=== PATIENT | male | born 1990 | race Caucasian/White ===

== ENCOUNTER 2020-06-11 11:07 | Observation (INO) | payer OTHER, SELFPAY ==
[2020-06-11] VITALS (9 sets, daily range): BP systolic 131–147; BP diastolic 71–98; PULSE 53–97; RESP 18; TEMP 36.8–37.1; O2SAT 92–100; BMI 26.8
--- NOTE | ~2020-06-11 | CT_ITS ---
EXAMINATION: CT brain wo con DATE: 06/11/2020 12:02 INDICATION: Hallucinations. TECHNIQUE: Computed tomography (CT) of the head was performed without intravenous contrast. The mA wa s adjusted according to patient size. Iterative reconstruction technique was employed. The dose-lengt h product was 605.33 mGy-cm. COMPARISON: None FINDINGS: There is no intracranial hemorrhage, acute infarction, or abnormal intracranial mass lesion . The ventricles are normal in size. There is mild mucosal thickening in the paranasal sinuses. The m astoid air cells are normal. The orbits are normal. IMPRESSION: 1. Normal brain. Reviewed, dictated and finalized at location A. IMPRESSION: 1. Normal brain.
--- NOTE | ~2020-06-11 | XR_ITS ---
EXAMINATION: XR chest 1V portable DATE: 06/11/2020 12:10 INDICATION: Hallucinations. TECHNIQUE: A single frontal view of the chest was obtained. COMPARISON: Chest 2 views 10/10/2013 FINDINGS: The chest demonstrates clear lungs without pneumonia, pleural effusion, or pneumothorax. Th e heart size is normal. IMPRESSION: 1. No acute cardiopulmonary disease. Reviewed, dictated and finalized at location A.
[2020-06-11] MEDS: LACTATED RINGERS 1,000 ML 999 ML IV CONT (12:23)
[2020-06-11] MEDS: ONDANSETRON INJ 4 MG/2 ML VIAL IV PUSH (12:23)
[2020-06-11 12:48] LABS: Basophils Absolute Auto 0.1 K/mm3 (0.0-0.1); Basophils Percent Auto 0.5 % (0.2-1.2); Eosinophils Percent Auto 0.2 % (0-4.4); Hematocrit 35.7 % (42.0-52.0); Hemoglobin 12.7 g/dL (14.0-18.0); Immature Granulocyte Absolute 0.04 K/mm3 (0.00-0.031); Immature Granulocyte Percent A 0.4 % (0-0.5); Lymphocytes Absolute Auto 2.64 K/mm3 (0.9-3.2); Lymphocytes Percent Auto 25.4 % (18.3-44.2); Mean Corpuscular HGB Conc 35.6 g/dl (32-36); Mean Corpuscular Hemoglobin 31.4 pg (26-34); Mean Corpuscular Volume 88.4 fl (80-100); Mean Platelet Volume 9.9 fl (7.4-10.4); Monocytes Absolute Auto 0.9 K/mm3 (0.1-0.6); Monocytes Percent Auto 8.5 % (2.6-8.5); Neutrophils Absolute Auto 6.8 K/mm3 (1.3-6.7); Platelet Count Result 242 k/mm3 (150-375); Red Blood Count 4.04 M/mm3 (4.6-6.20); Red Cell Distribution Width 12.6 % (11.5-14.5); White Blood Count 10.4 K/mm3 (4.5-10.0)
[2020-06-11 12:50] LABS: Add Urine Microscopic? YES; Appearance Urine Clear (Clear); Bilirubin Urine Negative (Negative); Blood Urine Negative (Negative); Color Urine Yellow (Yellow); Glucose Urine UA Negative (Negative); Ketones Urine Trace mg/dL (Negative); Leukocyte Esterase Ur Negative LEU/UL (Negative); Mucus Urine Rare /lpf; Nitrate Urine Negative (Negative); Protein Urine 1+ mg/dL (Negative); RBC Urine 0-2 /hpf (0-2); Specific Grav Ur 1.026 (1.001-1.035); Urobilinogen Urine Negative mg/dL (<2.0); WBC Urine 0-3 /hpf
[2020-06-11 12:51] LABS: Alanine Aminotransferase 45 U/L (4-50); Albumin Level 4.7 g/dL (3.5-5.1); Alkaline Phosphatase 70 U/L (38-126); Anion Gap 7 mmol/L (8-16); Aspartate Amino Transferase 66 U/L (17-59); Bilirubin,Total 2.3 mg/dL (0.2-1.3); Blood Urea Nitrogen 15 mg/dL (9-20); Calcium 9.5 mg/dL (8.4-10.2); Carbon Dioxide 25 mmol/L (22-30); Chloride 107 mmol/L (98-107); Creatine Kinase 1391 U/L (55-170); Estimated CRCL calculation 119 ml/min; Estimated Glomerular Filt Rate > 60; Glucose 113 mg/dL (75-110); Potassium 3.8 mmol/L (3.4-5.0); Sodium 139 mmol/L (137-145)
--- NOTE | 2020-06-11 12:53 | PC.NURSE ---
Per Kiley, District Leader, [facility] attempted to direct admit pt Anton Hopkins for a methamphetamine overdose yesterday.
[2020-06-11 12:59] LABS: Barbiturate Screen Urine Negative (Negative); Benzodiazepines Screen Urine Positive (Negative)
--- NOTE | 2020-06-11 13:00 | ECG_ITS ---
Measurements Intervals [place] Rate: 69 P: -13 MI: 134 QRS: 36 QRSD: 98 T: 12 QT: 406 QTc: 436 Interpretive Statements SINUS RHYTHM NORMAL ECG Electronically Signed On 06-11-2020 17:07:25 CDT by Laith Molina D.O.
[2020-06-11 13:01] LABS: Cannabinoid Screen Urine Negative (Negative); Cocaine Screen Urine Negative (Negative); Methadone Screen Urine Negative (Negative); Opiate Screen Urine Negative (Negative); Phencyclidine Screen Urine Negative (Negative)
--- NOTE | 2020-06-11 13:06 | PC.NURSE ---
lunch tray given.
--- NOTE | 2020-06-11 13:15 | ED.GENADULT ---
HPI - General Adult General Chief complaint: Psychiatric Symptoms Stated complaint: audio/visual hallucinations yesterday Time Seen by Provider: 06/11/20 11:28 Source: patient Mode of arrival: EMS Limitations: no limitations History of Present Illness HPI narrative: This is a 29 year old male with history of depression who presents for evaluation of auditory and visual hallucinations. He states 2 days ago he was partying in [place]. HE admits at to snorting what he thought was cocaine. He states he found out it also contained methamphetamine and he thinks their is acid as well. He has been seen at [place] [facility] twice since this use. He states he does not feel well, and he is having auditory and visual hallucinations. It has been reported to me that patient was going to be transferred to [facility] yesterday but no beds were available at the time. He denies being homicidal or suicidal at this time. Related Data Home Medications Medication Instructions Recorded Confirmed lorazepam 1 mg PO QID 06/11/20 06/11/20 Allergies Allergy/AdvReac Type Severity Reaction Status Date / Time silicone AdvReac Severe Difficulty Verified 06/11/20 15:24 Breathing Review of Systems Review of Systems: All systems reviewed & are unremarkable except as noted in HPI and below PMFSH Past Medical History Medical History (Updated 06/11/20 @ 19:03 by Amanda Vanegas MD) Depression Polysubstance abuse Surgical History Surgical History (Updated 06/11/20 @ 13:22 by Amanda Vanegas MD) No pertinent past surgical history Family History Family History (Updated 06/11/20 @ 15:53 by Sofiya Hanks RN) Other Unknown family medical history Social History Social History (Updated 06/11/20 @ 15:52 by Lisa Richardson PA-C) Social History: Surrogate decision maker: Code status: Full code. Years smoked: 18 Smoking status: Former smoker Tobacco type: cigarettes and cigars Second hand tobacco smoke exposure: Yes Additional smoking assessment comments: VARIES WHAT AND HOW MUCH HE SMOKES AND IF ALCOHOL OR DRUGS ARE INVOLVED Alcohol intake: current Drinks per week: 2 Substance use: current Substance use type: marijuana, crack/cocaine, heroin, amphetamines, opiates, painkillers, IV drugs and methamphetamine Last use: 06/09/20 Additional living arrangements comments: Patient lives in [place]. Additional occupation/education comments: [employer]. Spiritual care concerns: No Exam Const: General: no acute distress and alert Orientation/consciousness: patient oriented x3 Eyes: EOM: EOMs intact bilaterally Resp: Effort & Inspection: normal respiratory effort and no retractions Auscultation: clear to auscultation bilaterally Cardio: Rate: regular rate Rhythm: regular rhythm Heart sounds: no murmurs GI: GI Palp: Yes Soft to palpation, No Tenderness to palpation present (GI) and No Guarding due to palpation present (GI) Auscultation: normal bowel sounds Neuro: General: patient oriented x3 and CN's II-XI intact bilaterally Psych: Thought content: No Suicidality present, No Homicidality present and Yes Hallucination(s) present (the wall is dripping) Course Consultations Consultation #1: I Discussed case with Lisa Richardson, who accepts patient to hospitalist service for rhabomyolysis Date: 06/11/20 Time: 13:22 Vital Signs Vital signs: Vital Signs Temperature 98.8 F 06/11/20 11:07 Pulse Rate 97 06/11/20 11:07 Respiratory Rate 18 06/11/20 11:07 Blood Pressure 142/73 H 06/11/20 11:07 Pulse Oximetry 99 06/11/20 11:07 Temperature 98.4 F 06/11/20 15:15 Pulse Rate 81 06/11/20 16:00 Respiratory Rate 18 06/11/20 15:59 Blood Pressure 131/85 06/11/20 15:15 Pulse Oximetry 94 06/11/20 15:59 Medical Decision Making Vital Signs Vital Signs: Vital Signs Temperature 98.8 F 06/11/20 11:07 Pulse Rate 97 06/11/20 11:07 Respi
[2020-06-11 13:34] LABS: Ethanol < 10 mg/dL (<10)
--- NOTE | 2020-06-11 14:02 | PC.NURSE ---
Noted pt standing at side of bed heart rate sinus tach rate 150's. Pt appears anxious, states I know my is here. And my kid! . Had previously explained that no one by his 's name was here. Attempt to calm patient. Pt assisted back to bed. Heart rate decreases back to normal.
[2020-06-11] MEDS: SODIUM CHLORIDE 0.9% IV 1,000 ML 999 ML IV CONT (14:30)
--- NOTE | 2020-06-11 15:15 | ADMGEN ---
This patient, Anton Hopkins, was admitted to Medical Room 245-. Patient/family oriented to hospital policies and general routines including ID bracelet, bed and alarms, visiting hours, pain management, procedures, bathroom and other care routines, personal items, smoking policy, room service/diet, and visiting hours. Information on how to activate the Rapid Response Team has been discussed. Patient/Family are encouraged to report perceived risks to care and to ask questions if they do not understand what they are told or what they should do.
--- NOTE | 2020-06-11 16:00 | PM.IMHP ---
H&P: HPI History of Present Illness Date/Time: 06/11/20 16:00 Chief Complaint: Auditory and visual hallucinations. Narrative: This is a 29-year-old male with PTSD and a longstanding history of illicit substance use who presented to the emergency department earlier today via EMS with complaints of auditory and visual hallucinations. He is not a good historian and expresses impulsivity in flight of ideas, and as such a majority of the following is obtained via a review of his electronic medical records and discussions with his nurse who was finally able to get a hold of the patient's . Two days ago he was at a [place] party and admits to snorting what he thought was cocaine though he later found out that it was methamphetamines. Since that time he has been having auditory (he does not describe these in detail to me) and visual hallucinations and in fact he was in the emergency department at [facility] in [place] sometime yesterday for the same. It is my understanding that the police were called because he was belligerent and aggressive and he may have been taken to longterm last night. Today he has reportedly been seeing jewelry engraver running their cars through the wall of his apartment and he has been having ?swirling? vision when looking at the ruiz which he thinks may be due to possible acid that was mixed in with the meth. In any event, his workup in the ED was essentially unremarkable aside from an increase creatinine kinase level and he is being admitted in this setting. He has no complaints at this time and specifically denies headache, focal weakness, paresthesias, chest pain, shortness of breath, nausea, and vomiting. Review of Systems Review of Systems: Narrative: I attempted a complete review of systems but was unable to do so accurately given the patient's current state. He has frequent flight of ideas and answers a lot of my questions bizarrely. COUNT INCLUDES THE [facility] Past Medical History Medical History (Updated 06/11/20 @ 20:16 by Lisa Richardson PA-C) Polysubstance abuse Including cocaine, methamphetamines, and IV heroin and fentanyl abuse. Posttraumatic stress disorder Surgical History Surgical History No pertinent past surgical history Family History Family History Other Unknown family medical history Social History Social History (Updated 06/11/20 @ 20:16 by Lisa Richardson PA-C) Social History: Surrogate decision maker: Patient does not name a surrogate decision maker at time. Code status: Full code. Smoking status: Former smoker Tobacco type: cigarettes and cigars Second hand tobacco smoke exposure: Yes Additional smoking assessment comments: VARIES WHAT AND HOW MUCH HE SMOKES AND IF ALCOHOL OR DRUGS ARE INVOLVED. Alcohol intake: current Drinks per week: 2 Substance use: current Substance use type: marijuana, crack/cocaine, heroin, amphetamines, opiates, painkillers, IV drugs and methamphetamine Last use: 06/09/20 Additional living arrangements comments: Patient lives in [place]. Additional occupation/education comments: [place] [employer] Spiritual care concerns: No Meds Home Medications and Allergies Home Medications Medication Instructions Recorded Confirmed Type lorazepam 1 mg PO QID 06/11/20 06/11/20 History Allergies Allergy/AdvReac Type Severity Reaction Status Date / Time silicone AdvReac Severe Difficulty Verified 06/11/20 15:24 Breathing Vital Signs Vital Signs - 24 hr 06/11/20 11:07 06/11/20 13:03 06/11/20 13:16 Temperature 98.8 F Pulse Rate 97 71 83 Respiratory Rate 18 Blood Pressure 142/73 H 138/98 H 147/95 H Pulse Oximetry 99 100 100 06/11/20 15:15 Temperature 98.4 F Pulse Rate 53 L Respiratory Rate 18 Blood Pressure 131/85 Pulse Oximetry 94 Exam Narrative: Exam Narrative: General: Well-develop
[2020-06-11] MEDS: LACTATED RINGERS 1,000 ML 200 ML IV CONT (16:38)
[2020-06-11 18:20] LABS: Bilirubin Indirect 2.1 mg/dL (0-1.1); Creatine Kinase 1180 U/L (55-170); Lactate Dehydrogenase 590 U/L (313-618)
[2020-06-11 18:21] LABS: Prothrombin Time 14.2 Seconds (11.1-14.7)
[2020-06-11 18:22] LABS: Partial Thromboplastin Time 27.5 SECONDS (22.3-36.8)
[2020-06-11 18:38] LABS: Ammonia < 9 umol/L (9-30); Iron 169 ug/dL (49-181)
[2020-06-11 18:48] LABS: Percent Iron Saturation 79 % (20-50)
[2020-06-11 19:10] LABS: Thyroid Stimulating Hormone Reflex 0.449 uIU/mL (0.465-4.68)
[2020-06-11] MEDS: LORazepam INJ (*CRX) 2 MG/ML VIAL IM (19:10)
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
[2020-06-11 19:27] LABS: Folic Acid 16.6 ng/mL (2.76->20)
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
[2020-06-11] MEDS: HALOPERIDOL LACTATE 5 MG/ML VIAL IM (21:22)
--- NOTE | 2020-06-11 23:00 | PC.NURSE ---
Security sitting with patient. Pt agitation increasing making multiple attempts to get up and to pull out IV. Pt refused to leave tele in place and pas attempted to pull IV pole into bed with him. Pt pulled out his IV with his teeth. Dr Abrams notified and new orders received.
[2020-06-11] MEDS: HALOPERIDOL LACTATE 5 MG/ML VIAL 10 MG IM (23:15)
[2020-06-11] MEDS: diazePAM INJ (*CRX) 10 MG/2 ML SYRINGE 5 MG IM (23:16)
--- NOTE | 2020-06-12 00:33 | PC.NURSE ---
Pt having increased restlessness attempting to get up. Pt becoming frustrated and drawing arm back at staff with a fist. Dr Abrams notified.
[2020-06-12] MEDS: diazePAM INJ (*CRX) 10 MG/2 ML SYRINGE IM (00:51)
--- NOTE | 2020-06-12 02:11 | PC.NURSE ---
Pt attempting to get up and restless. Call and informed Dr Abrams.
--- NOTE | 2020-06-12 02:30 | PC.NURSE ---
Pt restless, Dr Abrams came and evaluated pt and placed order.
[2020-06-12] MEDS: QUEtiapine FUMARATE 25 MG TABLET 50 MG PO (02:44)
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
--- NOTE | 2020-06-12 05:06 | PC.NURSE ---
Pt is sleeping at this time.
[2020-06-12 05:37] LABS: Hematocrit 34.9 % (42.0-52.0); Hemoglobin 12.6 g/dL (14.0-18.0); Mean Corpuscular HGB Conc 36.1 g/dl (32-36); Mean Corpuscular Hemoglobin 31.2 pg (26-34); Mean Corpuscular Volume 86.4 fl (80-100); Platelet Count Result 220 k/mm3 (150-375); Red Blood Count 4.04 M/mm3 (4.6-6.20); Red Cell Distribution Width 12.2 % (11.5-14.5); White Blood Count 8.8 K/mm3 (4.5-10.0)
[2020-06-12 05:39] VITALS: BP 123/50; PULSE 85; RESP 16; TEMP 36.4; O2SAT 98
[2020-06-12 05:44] LABS: Alanine Aminotransferase 48 U/L (4-50); Albumin Level 4.3 g/dL (3.5-5.1); Alkaline Phosphatase 64 U/L (38-126); Anion Gap 6 mmol/L (8-16); Aspartate Amino Transferase 80 U/L (17-59); Bilirubin,Total 2.4 mg/dL (0.2-1.3); Blood Urea Nitrogen 12 mg/dL (9-20); Calcium 9.1 mg/dL (8.4-10.2); Carbon Dioxide 24 mmol/L (22-30); Chloride 109 mmol/L (98-107); Estimated CRCL calculation 133 ml/min; Estimated Glomerular Filt Rate > 60; Glucose 102 mg/dL (75-110); Potassium 3.5 mmol/L (3.4-5.0); Sodium 139 mmol/L (137-145)
--- NOTE | 2020-06-12 09:04 | PM.DS ---
DS: Admitting Diagnosis Admitting Diagnosis Admitting Diagnosis: hallucinations, rhabdomyelitis DS: Discharge Diagnosis Discharge Diagnosis (1) Rhabdomyolysis: Code(s): M62.82 - Rhabdomyolysis Status: Acute Assessment and Plan: Presumably methamphetamine induced rhabdomyolysis. (2) Hallucinations: Code(s): R44.3 - Hallucinations, unspecified Status: Acute Assessment and Plan: Patient reports both auditory and visual hallucinations, likely due to ingestion of methamphetamines +/- hallucinogenics. (3) Polysubstance abuse: Code(s): F19.10 - Other psychoactive substance abuse, uncomplicated Status: Chronic Assessment and Plan: Urine drug screen is positive for benzodiazepines and negative for opiates. Amphetamine testing is a send out at this time. Patient encouraged to work on his drug addiction prior to smoking cessation. DS: Summary Hospital Course Reason for hospitalization: Patient is a 29-year-old man with a history of methamphetamine abuse in the past, who has been clean for 4 years, and presents to the emergency room after having hallucinations after relapse. Patient reports snorting methamphetamine on Monday 414 and since then he has been having hallucinations and anxiety. In the ER showed he was afebrile, not tachycardic, normal respiratory rate and oxygenation on room air. Blood pressure slightly elevated 142/73. Initial labs showed slight leukocytosis, normocytic anemia, normal differential. Coag panel negative, CMP showed normal electrolytes, renal function. Total bilirubin was slightly elevated 2.3, AST slightly elevated 66, ALT normal, total CK was 1391 on arrival. He was admitted into the hospital due to acute hallucinations from polysubstance abuse, rhabdomyolysis from methamphetamine usage. He was started on IV fluids, recheck labs in the morning, and given multiple medications to help with his acute agitation. The next morning I evaluated the patient who was back to his baseline. Not suicidal or homicidal. He was eating and drinking without any issues. The patient only received 1 L of IV fluids since arrival since he pulled out his IV and would not allow anyone to place another IV. Recheck his labs which showed normal renal function, total bilirubin is stable at 2.4, total CK had improved to 1100. Urinalysis had been collected on arrival which did not show any blood in his urine which would be concerning for rhabdo. Since the patient was back to his baseline at this time, wake and alert able to drink and hydrate his self, his CK almost back to normal even without extensive fluid hydration. Talked to the patient's with the patient's permission and informed her of his mental status at this time. She feels comfortable with picking him up and bring him home to help him with his polysubstance abuse. Care coordination Gave the patient resources and I discussed with the patient's options as well. Patient was discharged from the hospital in stable condition and prescribed melatonin to help him sleep at night and follow-up with her primary care provider for further evaluation and monitoring. Patient understands and agrees with the plan all questions answered. Hospital Course: See above Status at Discharge Cognitive/behavioral status at discharge: Stable, improved. Time Spent with Patient Time attestation: Total time spent providing and/or coordinating discharge services: 45 Time spent: Greater than 30 minutes Exam Narrative: Exam Narrative: General: 29-year-old man sitting up in bed eating breakfast. Appears comfortable. In no acute distress. Skin: Tattoos throughout both arms and chest. No jaundice or cyanosis. Good skin turgor. Neck: Full range of motion. Supple. Respiratory: Lungs are clear to auscultation bilaterally. No bony chest wall tenderness. Cardiovascular: The heart has a regular rate and rhythm without murmur. Upper extre
[2020-06-12 09:27] LABS: Free T4 Free Thyroxine Reflex 1.11 ng/dL (0.78-2.19)
[2020-06-12 09:41] VITALS: O2SAT 98
[2020-06-12 09:45] VITALS: RESP 16; O2SAT 98; BMI 26.8
[2020-06-12 10:32] LABS: Total Triiodothyronine (T3) 1.81 NG/ML (0.97-1.69)
[2020-06-16 14:31] LABS: Haptoglobin 149 mg/dL (43-212)
== END 2020-06-12 12:50 | disposition home or self-care (01) ==
LOC: ANHED 12:04 → ANH2MED 14:13
PROVIDERS: Physician Assistant; Admitting Provider Internal Medicine; Emergency Provider General Practice; Visit Provider Physician Assistant
DX: M62.82 Rhabdomyolysis (principal); F19.10 Other psychoactive substance abuse, uncomplicated; R44.0 Auditory hallucinations; R44.1 Visual hallucinations; F32.9 Major depressive disorder, single episode, unspecified; F17.290 Nicotine dependence, other tobacco product, uncomplicated; F43.10 Post-traumatic stress disorder, unspecified
CPT/HCPCS: 36415; 70450; 71045; 80053; 80307; 81001; 82140; 82248; 82550; 82607; 82728; 82746; 83010; 83540; 83550; 83615; 83735; 84439; 84443; 84480; 85025; 85027; 85610; 85730; 93005; 96361; 96372; 96374; 99285; A9270; G0378; G0379; J1630; J2060; J2405; J3360; J7030; J7120